=== PATIENT | female | born 1965 | race Caucasian/White ===

== ENCOUNTER → 2017-08-18 | Outpatient (CLI) | payer OTHER ==
[~2017-08-18] MED LIST: CITA-156 PO; CITA-157 PO; CLI150 PO; DICL-195 PO; IBUP600T22 PO; LOR5/325 PO; PER PO
--- NOTE | 2017-08-18 16:35 | RADIOLOGY IMAGING REPORT ---
FACILITY: [facility] - [place] PATIENT NAME: Tammy Maya : 1965 MR: [id number] V: [id number] EXAM DATE: ORDERING PHYSICIAN: OLIVE MONDRAGON TECHNOLOGIST: Location: [facility] - [place] Patient: Tammy Maya : 1965 Visit/Account:[id number] Date of Sevice: 08/18/2017 Exam type: SOFT TISSUE NON-SPECIFIC History: Palpable lump low right back Comparison: None. Findings: Just beneath the skin along the lower right side of the patient's back in the location of the palpabl e findings are two well-circumscribed hypoechoic nodules one measuring 1.8 x 1.3 x 0.4 cm and one miguelina suring 1.8 x 1.5 x 0.5 cm. These do not appear to be hypervascular. No sinus track is identified ex tending to the skin. IMPRESSION: 1. There two nonspecific soft tissue nodule just beneath the skin along the posterior lower right ba ck in the location patient's palpable findings. These are of uncertain etiology although the margins appear smooth. The appearance is not suggestive of an abscess or inflammatory phlegmon Report Dictated By: Judy Crenshaw MD at 08/18/2017 4:29 PM Report E-Signed By: Judy Crenshaw MD at 08/18/2017 4:32 PM WSN:[id number]
--- NOTE | 2017-08-19 14:36 | RADIOLOGY IMAGING REPORT ---
FACILITY: [facility] [place] PATIENT NAME: JUAN M COLMENARES : [id number] MR: [id number] V: [id number] EXAM DATE: [id number] ORDERING PHYSICIAN: OLIVE MONDRAGON TECHNOLOGIST: Gloria Mariee PROCEDURE:BILATERAL DIGITAL SCREENING MAMMOGRAM WITH CAD ASSISTED INTERPRETATION & 3D TOMOSYNTHESIS COMPARISON:Prior mammograms 06/13/15, 06/04/15 INDICATIONS:screening FINDINGS: A small amount of fibroglandular tissue is seen throughout the breasts. The parenchymal pattern has remained stable allowing for difference in mammographic technique & patient positioning. There is no evidence of malignant appearing mass, malignant appearing calcifications or other secondary sign of malignancy in either breast. DIAGNOSTIC CATEGORY 2--BENIGN FINDING. RECOMMENDATIONS: ROUTINE MAMMOGRAM AND CLINICAL EVALUATION. IMPRESSION: BIRADS 2: Benign finding No significant abnormality is seen Dictated by: Judy Crenshaw M.D. on 08/18/2017 at 17:16 Transcribed by: ARNALDO on 08/19/2017 at 8:18 Approved by: Judy Crenshaw M.D. on 08/19/2017 at 14:36 [facility]
== END ==
LOC: MAMO 00:44
PROVIDERS: ATTEND Nurse Practitioner Family
DX: Z12.31 Encounter for screening mammogram for malignant neoplasm of breast (principal); R22.2 Localized swelling, mass and lump, trunk
CPT/HCPCS: 76999; 77063; 77067

== ENCOUNTER → 2017-08-25 | Outpatient (REF) | payer OTHER ==
[2017-08-25 11:24] LABS: PLATELET COUNT, AUTOMATED 166 K/uL (150-450)
== END ==
PROVIDERS: ATTEND Physician Assistant Medical
DX: I10 Essential (primary) hypertension (principal)
CPT/HCPCS: 82040; 82247; 82310; 82374; 82435; 82565; 82947; 84075; 84132; 84155; 84295; 84450; 84460; 84520; 85025